=== PATIENT | female | born 1985 | race Caucasian/White ===

== ENCOUNTER 2019-04-23 13:30 | Emergency (ER) | payer OTHER ==
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
[2019-04-23] MEDS ORDERED: Hydromorphone 1 mg/ml Ampule IV ONE (15:34)
[2019-04-23] MEDS ORDERED: Zofran 4 MG/2 ML VIAL ONE (15:35)
[2019-04-23] MEDS ORDERED: Hydromorphone 1 mg/ml Ampule ONE (15:35)
[2019-04-23] MEDS ORDERED: Zofran 4 MG/2 ML VIAL IV ONE (15:36)
[2019-04-23 16:12] VITALS: BP 126/76; PULSE 77; O2SAT 96
== END 2019-04-23 16:12 | disposition home or self-care (01) ==
LOC: ED 13:30
DX: S16.1XXA Strain of muscle, fascia and tendon at neck level, initial encounter (principal); V89.2XXA Person injured in unspecified motor-vehicle accident, traffic, initial encounter
CPT/HCPCS: 70450; 72125; 96374; 96375; 99285; J1170; J2405

== ENCOUNTER 2019-12-23 13:03 | Emergency (ER) | payer OTHER ==
[2019-12-23] MEDS ORDERED: Norco 10/325 MG Tablet PO ONE (13:46)
[2019-12-23] MEDS ORDERED: TENIVAC VIAL IM ONE ×2 (13:52→14:01)
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
[2019-12-23] MEDS ORDERED: Norco 10/325 MG Tablet ONE (14:00)
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
[2019-12-23 14:51] VITALS: BP 119/79; PULSE 79
[2019-12-23 16:24] VITALS: O2SAT 96
== END 2019-12-23 14:51 | disposition home or self-care (01) ==
LOC: ED 13:03
DX: R07.9 Chest pain, unspecified (principal); E10.9 Type 1 diabetes mellitus without complications
CPT/HCPCS: 70450; 72170; 73030; 73080; 73562; 90471; 90714; 99284; A9270-GY

== ENCOUNTER → 2022-02-19 | Day surgery (SDC) | payer BC ==
[~2022-02-19] MED LIST: ARZOL Silver Nitrate Applicator TP ONE; CEFAZOLIN 2 GM-D5W BAG** 2 GM/50 ML ML IV ONE; CEFAZOLIN 2 GM-D5W BAG** 2 GM/50 ML ML IV SCH; DIPRIVAN 200 MG/20 ML IV ONE; Decadron 4 MG INJ ONE; Lactated Ringers 1,000 ML IV ONE; Lactated Ringers 1,000 ML IV SCH; SUBLIMAZE 100 MCG/2 ML ONE; TORAdol 30 mg Injection ONE; Versed 2 MG/2 ML Injection ONE; Xylocaine-Mpf 2% 5 Ml Vial ONE; Zofran 4 MG/2 ML VIAL ONE
[2022-02-19 11:05] VITALS: PULSE 50
[2022-02-19 11:57] VITALS: BP 131/86; O2SAT 98
--- NOTE | 2022-02-20 08:20 | OP ---
SURGERY DATE/TIME: 02/19/2022 0924 PREOPERATIVE DIAGNOSIS: Abnormal uterine bleeding. POSTOPERATIVE DIAGNOSIS: Abnormal uterine bleeding with endometrial polyp. PROCEDURE: Hysteroscopy D&C with MyoSure resection of endometrial polyp and NovaSure ablation. SURGEON: Jaquan Ventura D.O. SLEEP TECHNICIAN: Mira Leach, surgical supply assistant. ANESTHESIA: General. ESTIMATED BLOOD LOSS: Minimal. COMPLICATIONS: None. INDICATIONS: The risks, benefits, indications and alternatives of the procedure were reviewed with the patient prior to the procedure. The patient understood the risk of infection, bleeding, bowel injury, bladder injury, ureteral injury, uterine perforation, pelvic infection associated with the surgery and desires to have this surgery as a possible means to alleviate her current medical condition. DESCRIPTION OF PROCEDURE AND FINDINGS: At this point the patient is taken to the operating room, given general sedation, placed in the dorsal lithotomy position, prepped and draped in the usual sterile fashion. A weighted speculum is then placed in the patient's vagina and the anterior lip of the cervix is grasped with a single tooth tenaculum. Endocervical dilators were advanced through the endocervical canal as a means to dilate the cervix and at this point a 5 mm hysteroscope was then placed in through the endocervical region where visualization appeared to have an approximately 2 x 2 cm endometrial polyp just proximal to the internal os. From this point no other gross abnormalities that were located in the uterine cavity. From this point the MyoSure instrument was then taken through the endocervical region where the MyoSure instrument was used to resect the endometrial polypoid lesion and was done so without complication. The MyoSure instrument was then removed and the curette was then placed into the fundus of the uterus where curettage was performed in all quadrants of the uterus retrieving a moderate amount of endometrial tissue. From this point hemostasis was obtained. The NovaSure instrument was then taken toward the fundal region of the uterus with a measurement of 6.5 cm and width of 3.5 cm and the instrument was engaged and the ablative time was 1 minute and 12 seconds. After complete ablation, the instrument was disengaged and removed from the uterine cavity without complication. From this point all instruments were removed from the patient's vaginal region. The patient was then taken out of the dorsal lithotomy position and was then taken to the recovery room in stable condition. All instruments and laps were accounted for x2.
== END ==
LOC: SDC 06:26
PROVIDERS: ATTEND Obstetrics & Gynecology
DX: N84.0 Polyp of corpus uteri (principal); N93.9 Abnormal uterine and vaginal bleeding, unspecified
CPT/HCPCS: 81025; J0690; J1100; J1885; J2250; J2405; J2704; J3010; A9270-GY

== ENCOUNTER 2024-02-07 13:48 | Emergency (ER) | payer OTHER ==
[2024-02-07 14:00] VITALS: RESP 18; TEMP 97.7
[2024-02-07] MEDS ORDERED: TORAdol 30 mg Injection ONE (14:29)
[2024-02-07] MEDS: TORAdol 30 mg Injection IM ONE (14:29)
[2024-02-07 14:58] VITALS: O2SAT 97
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
[2024-02-07 15:25] VITALS: BP 124/84; PULSE 88
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
== END 2024-02-07 15:51 | disposition home or self-care (01) ==
LOC: ED 13:48
DX: S93.402A Sprain of unspecified ligament of left ankle, initial encounter (principal); X50.0XXA Overexertion from strenuous movement or load, initial encounter; M79.672 Pain in left foot
CPT/HCPCS: 73610; 73630; 96372; 99283; J1885

== ENCOUNTER 2024-08-05 10:49 | Day surgery (SDC) | payer OTHER ==
[2024-08-05 11:24] LABS: HCG URINE TEST NEGATIVE (NEGATIVE)
[2024-08-05 11:32] VITALS: RESP 16; O2SAT 97
[2024-08-05] MEDS ORDERED: Lactated Ringers 1,000 ML IV ONE ×2 (11:35→12:45)
[2024-08-05] MEDS ORDERED: TYLENOL EXTRA STRENGTH 500 MG ONE (11:36)
[2024-08-05] MEDS ORDERED: Decadron 4 MG ONE (11:37)
[2024-08-05] MEDS ORDERED: celeBREX 100 MG ONE (11:37)
[2024-08-05] MEDS ORDERED: NEURONTIN ONE (11:37)
[2024-08-05] MEDS: celeBREX 100 MG PO ONE (11:39)
[2024-08-05] MEDS: Decadron 4 MG PO ONE (11:39)
[2024-08-05] MEDS: TYLENOL EXTRA STRENGTH 500 MG PO ONE (11:39)
[2024-08-05] MEDS: NEURONTIN PO ONE (11:39)
[2024-08-05] MEDS ORDERED: CEFOXITIN 2 GM/100 ML NACL IVPB 2 GM/100 ML IVPB IV ONE (11:42)
[2024-08-05] MEDS ORDERED: Pepcid 20 MG VIAL IV ONE (11:43)
[2024-08-05] MEDS ORDERED: Transderm Scop 1.5MG Patch ONE (11:43)
[2024-08-05] MEDS: Transderm Scop 1.5MG Patch TOP ONE (11:44)
[2024-08-05] MEDS: Lactated Ringers 1,000 ML IV SCH (11:44)
[2024-08-05] MEDS: CEFOXITIN 2 GM/100 ML NACL IVPB 2 GM/100 ML IVPB IV ONE (11:44)
[2024-08-05] MEDS ORDERED: Sensorcaine 0.25% 10 ML ONE (11:44)
[2024-08-05] MEDS: Pepcid 20 MG VIAL IV ONE (11:44)
[2024-08-05] MEDS ORDERED: Sodium Chloride 0.9% 1000 ML 1,000 ML ONE (12:12)
[2024-08-05] MEDS ORDERED: SUBLIMAZE 100 MCG/2 ML ONE (12:21)
[2024-08-05] MEDS ORDERED: dexAMETHasone sodium phosphate ONE (12:31)
[2024-08-05] MEDS ORDERED: ROCURONIUM BROMIDE IV ONE (12:31)
[2024-08-05] MEDS ORDERED: propofoL IV ONE (12:31)
[2024-08-05] MEDS ORDERED: Zofran 4 MG/2 ML VIAL ONE ×2 (12:31→13:17)
[2024-08-05] MEDS ORDERED: TORAdol 30 mg Injection ONE (12:40)
[2024-08-05] MEDS ORDERED: BRIDION 200MG/2ML IV ONE (12:40)
[2024-08-05] MEDS ORDERED: Hydromorphone 1 mg/ml Injection ONE (13:08)
[2024-08-05] MEDS ORDERED: Compazine 10 MG/2 ML ONE (14:29)
[2024-08-05 15:08] VITALS: PULSE 68; TEMP 97
[2024-08-05 15:19] VITALS: BP 120/81
--- NOTE | 2024-08-06 09:59 | OP ---
SURGERY DATE/TIME: 08/05/2024 [id number] PREOPERATIVE DIAGNOSIS: Cholecystitis. POSTOPERATIVE DIAGNOSIS: Cholecystitis. PROCEDURE: Laparoscopic cholecystectomy. SURGEON: Nino Horton MD ANESTHESIA: General. ESTIMATED BLOOD LOSS: Minimal. PATIENT CONDITION: Stable. COMPLICATIONS: None. SPECIMENS: Gallbladder. INDICATIONS: The patient is a 38-year-old who presents with intermittent abdominal pain consistent with chronic cholecystitis, imaging showing gallstones, gall sludge. Discussed with patient the risk of infection, bleeding, injury of nearby structure, hernia, failure to resolve symptoms. She would like to proceed with surgery. FINDINGS: Critical view. DESCRIPTION OF PROCEDURE: The patient brought to the operating room. General anesthesia induced. Routinely positioned, prepped and draped. Time-out performed. Received a preoperative antibiotic. Veress needle inserted in the left upper quadrant. Pneumoperitoneum established. A 5 mm Optiview trocar placed in the left upper quadrant. The abdomen is surveyed. Right paramedian 11 mm trocar placed. Two additional 5 mm trocars placed in the right upper quadrant. The patient was positioned. Gallbladder retracted. Cystic duct and cystic artery dissected out. Both were clipped with 5 mm metal clip field operations supervisor, divided. Gallbladder was taken off the liver bed, placed in a specimen bag, removed through the 11 mm trocar site. Right upper quadrant reinspected. Clips are in good position. There is good hemostasis. The 11 trocar closed with 0 Vicryl interrupted suture passer. The right upper quadrant port was removed under direct visualization. The left upper quadrant port used for desufflation was then removed. The skin was closed with 4-0 Vicryl suture. Marcaine had been injected. Steri-Strips and sterile dressings applied. All counts were correct. The patient tolerated the procedure well. She was extubated and taken to Recovery in stable condition.
== END 2024-08-05 15:23 | disposition home or self-care (01) ==
LOC: SDC 10:49
PROVIDERS: ATTEND Surgery
DX: K81.9 Cholecystitis, unspecified (principal)
CPT/HCPCS: 81025; J0694; J1100; J1171; J1885; J2405; J2704; J3010; L0625; A9270-GY